=== PATIENT | female | born 1980 | race Caucasian/White ===

== ENCOUNTER 2020-09-22 15:40 | Emergency (ER) | payer OTHER ==
[~2020-09-22 15:40] MED LIST: ACET500 PO; ALBU90OI INH; AMOCLA875 PO; AMOX500 PO; ASPI325 PO; AZIT250 PO; BCP; BENZ100A PO; BUPR100 PO; CEPH500 PO; CODACE30 PO; CODGUAEL PO; COLD; COUGH; CRUTCH3 USE; CRUTCH4 USE; CYCL10 PO; DIAZ10 PO; DIAZ5 PO; DIPH50 PO; Doxycycline Mo100 M1 PO; ERYT1OIN LEFTEYE; FAMO20 PO; HYDACE5 PO; HYDGUAL120 PO; HYDPAM25 PO; HYOMAX; LORA1 PO; LORA10ER PO; METPRE4DP PO; MULVITMINE; MUPI2TO TOP; NAPR500 PO; ONDA4ODT MM; OXYACE5T PO; PERM5TC TOP; PRED10 PO; PRED20 PO; PROCODE120 PO; PRODEXEL PO; PROM25 PO; PSEU120ER PO; RANI150; SULTRIDS PO; Vibramycin100 MG PO; Zofran Odt4 MG SL; Zofran4 MG PO; [UNRECOGNIZED DRUG - OTHER]; [UNRECOGNIZED DRUG - OTHER]; [UNRECOGNIZED DRUG - REMARK]
== END 2020-09-22 16:11 | disposition left against medical advice (07) ==
LOC: ER 15:40
DX: Z53.21 Procedure and treatment not carried out due to patient leaving prior to being seen by health care provider (principal)

== ENCOUNTER 2020-11-07 14:57 | Emergency (ER) | payer OTHER ==
[~2020-11-07] VITALS: Ht 182.9 cm; Wt 83.5 kg
[2020-11-07] MEDS ORDERED: Robaxin750 MG PO (15:21)
[2020-11-07] MEDS ORDERED: PSEU120ER PO (15:21)
[2020-11-07] MEDS ORDERED: Norco 5-325 Ta1 EACH PO (18:56)
== END 2020-11-07 18:32 | disposition home or self-care (01) ==
LOC: ER 14:57
DX: S32.029A Unspecified fracture of second lumbar vertebra, initial encounter for closed fracture (principal); S32.039A Unspecified fracture of third lumbar vertebra, initial encounter for closed fracture; F17.210 Nicotine dependence, cigarettes, uncomplicated; Z88.6 Allergy status to analgesic agent; Z91.030 Bee allergy status; Z88.2 Allergy status to sulfonamides; Z91.013 Allergy to seafood; Z79.899 Other long term (current) drug therapy; W10.9XXA Fall (on) (from) unspecified stairs and steps, initial encounter
CPT/HCPCS: 72128; 72131; 81025; 99284-25; A9270

== ENCOUNTER 2020-12-10 | Emergency (ER) | payer OTHER ==
[~2020-12-10] MED LIST changes: +Norco 5-325 Ta1 EACH PO; +Robaxin750 MG PO
== END 2020-12-10 01:31 | disposition left against medical advice (07) ==
LOC: ER
DX: Z53.21 Procedure and treatment not carried out due to patient leaving prior to being seen by health care provider (principal)

== ENCOUNTER 2020-12-11 16:32 | Emergency (ER) | payer OTHER ==
[~2020-12-11] VITALS: Ht 180.3 cm; Wt 85.7 kg
== END 2020-12-11 18:08 | disposition home or self-care (01) ==
LOC: ER 16:32
DX: M54.9 Dorsalgia, unspecified (principal); F17.210 Nicotine dependence, cigarettes, uncomplicated; Z88.6 Allergy status to analgesic agent; Z88.5 Allergy status to narcotic agent; Z88.2 Allergy status to sulfonamides; Z91.09 Other allergy status, other than to drugs and biological substances; Z91.030 Bee allergy status; Z79.899 Other long term (current) drug therapy; Z91.81 History of falling; W18.30XA Fall on same level, unspecified, initial encounter
CPT/HCPCS: 36415; 70450; 72131; 99284-25

== ENCOUNTER → 2021-04-09 | Outpatient (CLI) | payer OTHER ==
[2021-04-10 11:43] LABS: Candida species (DNA Probe) Negative (NEGATIVE); G. vaginalis (DNA Probe) Positive (NEGATIVE); T. vaginalis (DNA Probe) Negative (NEGATIVE)
[2021-04-11 15:09] LABS: HPV 16 Negative (Negative); HPV 18 Negative (Negative); HPV OTHER HR TYPES Negative (Negative)
== END ==
LOC: LAB SHORT 15:49 → LAB 15:49
PROVIDERS: Family Medicine
DX: Z01.419 Encounter for gynecological examination (general) (routine) without abnormal findings (principal); N89.8 Other specified noninflammatory disorders of vagina
CPT/HCPCS: 87480; 87510; 87624; 87660; G0145

== ENCOUNTER → 2021-08-29 | Outpatient (CLI) | payer OTHER | LOC: LAB SHORT 18:44 | PROVIDERS: Nurse Practitioner Family | DX: Z79.899 Other long term (current) drug therapy (principal); Z88.2 Allergy status to sulfonamides; Z91.013 Allergy to seafood; Z88.6 Allergy status to analgesic agent; Z91.038 Other insect allergy status; Z91.048 Other nonmedicinal substance allergy status | CPT/HCPCS: G0480 ==

== ENCOUNTER → 2022-01-07 | Outpatient (CLI) | payer OTHER ==
[2022-01-08 09:25] LABS: Candida species (DNA Probe) Negative (NEGATIVE); G. vaginalis (DNA Probe) Positive (NEGATIVE); T. vaginalis (DNA Probe) Negative (NEGATIVE)
== END | disposition home or self-care (01) ==
LOC: LAB SHORT 09:30
PROVIDERS: Internal Medicine
DX: N94.10 Unspecified dyspareunia (principal)
CPT/HCPCS: 87480; 87510; 87660

== ENCOUNTER 2022-08-17 20:10 | Emergency (ER) | payer OTHER ==
[~2022-08-17] VITALS: Ht 182.9 cm; Wt 93.0 kg
== END 2022-08-17 23:13 | disposition home or self-care (01) ==
LOC: ER 20:10
DX: M25.562 Pain in left knee (principal); G89.29 Other chronic pain; F17.210 Nicotine dependence, cigarettes, uncomplicated; Z88.6 Allergy status to analgesic agent; Z88.5 Allergy status to narcotic agent; Z88.8 Allergy status to other drugs, medicaments and biological substances; Z91.030 Bee allergy status; Z91.013 Allergy to seafood; Z88.2 Allergy status to sulfonamides; Z91.048 Other nonmedicinal substance allergy status
CPT/HCPCS: 73562-LT; J1885

== ENCOUNTER → 2022-08-27 | Outpatient (CLI) | payer OTHER | END | disposition home or self-care (01) | LOC: LAB 10:45 → LAB SHORT 10:45 | PROVIDERS: Nurse Practitioner Family | DX: G89.4 Chronic pain syndrome (principal) | CPT/HCPCS: G0480 ==

== ENCOUNTER → 2022-09-15 | Outpatient (CLI) | payer OTHER ==
[~2022-09-15] MED LIST changes: +FAMO20; +HYDHCL25 PO; +ZYRTEC10 M2 PO
== END | disposition home or self-care (01) ==
LOC: LAB 15:00 → LAB SHORT 15:00
PROVIDERS: Nurse Practitioner Family
DX: G89.4 Chronic pain syndrome (principal)
CPT/HCPCS: G0480

== ENCOUNTER 2022-09-18 06:06 | Day surgery (SDC) | payer OTHER ==
[~2022-09-18] VITALS: Ht 180.3 cm; Wt 94.5 kg
[~2022-09-18 06:06] MED LIST changes: -FAMO20; -HYDHCL25 PO; -ZYRTEC10 M2 PO
[2022-09-18] MEDS ORDERED: HYDHCL25 PO (06:32)
[2022-09-18] MEDS ORDERED: CYCL10 PO (06:33)
[2022-09-18] MEDS ORDERED: ZYRTEC10 M2 PO (06:34)
[2022-09-18] MEDS ORDERED: FAMO20 (06:34)
--- NOTE | 2022-09-18 07:58 | NUR ---
09/18/22 0758 Kulwant Parra 1 MG EPI ADDED TO THE FIRST BAG OF FLUIDS FOR IRRIGATION AT OPSITE PER ORDER. ROPIVACAINE 0.5% 30 MLS MIXED W/ EPI 0.15 ML (1MG/ML) PER ORDER TO MAKE ROPIVACAINE 0.5% 1:200,000 FOR INJECTION AT OPSITE. MULTI DOSE VIAL. [facility]
--- NOTE | 2022-09-18 09:42 | NUR ---
09/18/22 0942 Donita Evangelista TOTAL OF 100MCG FENTAYL GIVEN TO CONTTOL PAIN. UP IN CHAIR NOW . POLAR PACK PUT ON AND IN PLACE. [facility] HAS RESOLVED WILL NOT GIVE METROCLOPRAMAIDE AT THIS TIME. PT IS FEELING BETTER WHILE IN CHAIR.
== END 2022-09-18 10:14 | disposition home or self-care (01) ==
LOC: ORSCSDS 06:06
PROVIDERS: Orthopaedic Surgery
PROC: 0SQD4ZZ Repair Left Knee Joint, Percutaneous Endoscopic Approach (ICD-10-PCS; principal; 2022-09-18 07:30)
DX: S83.252A Bucket-handle tear of lateral meniscus, current injury, left knee, initial encounter (principal); S83.242A Other tear of medial meniscus, current injury, left knee, initial encounter; E78.5 Hyperlipidemia, unspecified; Z79.899 Other long term (current) drug therapy; F17.210 Nicotine dependence, cigarettes, uncomplicated
CPT/HCPCS: A9270; C1713; J0171; J0690; J1100; J1885; J2250; J2405; J2704; J2765; J2795; J3010; J7120

== ENCOUNTER → 2022-11-25 | Outpatient (CLI) | payer OTHER ==
[~2022-11-25] MED LIST changes: +FAMO20; +HYDHCL25 PO; +ZYRTEC10 M2 PO
== END | disposition home or self-care (01) ==
LOC: LAB SHORT 14:54 → LAB 14:54
DX: R30.0 Dysuria (principal)
CPT/HCPCS: 87077; 87086; 87186

== ENCOUNTER → 2023-06-04 | Outpatient (CLI) | payer OTHER | END | disposition home or self-care (01) | LOC: LAB SHORT 18:23 → LAB 18:23 | PROVIDERS: Nurse Practitioner Family | DX: Z51.81 Encounter for therapeutic drug level monitoring (principal); Z79.891 Long term (current) use of opiate analgesic | CPT/HCPCS: G0480 ==

== ENCOUNTER → 2023-08-22 | Outpatient (CLI) | payer OTHER | LOC: LAB SHORT 13:45 → LAB 13:45 | DX: N39.0 Urinary tract infection, site not specified (principal) | CPT/HCPCS: 87086 ==

== ENCOUNTER → 2023-10-14 | Outpatient (CLI) | payer OTHER ==
[2023-10-14 15:26] LABS: Candida species (DNA Probe) Negative (NEGATIVE); G. vaginalis (DNA Probe) Positive (NEGATIVE); T. vaginalis (DNA Probe) Negative (NEGATIVE)
[2023-10-15 17:52] LABS: ETHYL GLUCURONIDE SCRN RFX,URN PresumptivePOS ng/mL (Cutoff 500)
[2023-10-17 02:20] LABS: ETHYL GLUCURONIDE, URN, QUANT >10000 ng/mL; ETHYL SULFATE, URN, QUANT >10000 ng/mL
== END | disposition home or self-care (01) ==
LOC: LAB 10:00 → LAB SHORT 10:00
PROVIDERS: Nurse Practitioner Family
DX: N30.01 Acute cystitis with hematuria (principal); N89.8 Other specified noninflammatory disorders of vagina; F10.10 Alcohol abuse, uncomplicated
CPT/HCPCS: 87077; 87086; 87186; 87480; 87510; 87660; G0480

== ENCOUNTER 2024-03-23 22:25 | Emergency (ER) | payer OTHER ==
[~2024-03-23] VITALS: Ht 180.3 cm; Wt 93.0 kg
[~2024-03-23 22:25] MED LIST changes: +OMEP20ER PO
[2024-03-23 22:48] VITALS: BP 134/100
[2024-03-23] MEDS ORDERED: RX Prepack 6 Tabs Oxycodone 5mg UD ONE (23:30)
== END 2024-03-23 23:50 | disposition home or self-care (01) ==
LOC: ER 22:25
DX: S30.0XXA Contusion of lower back and pelvis, initial encounter (principal); X50.1XXA Overexertion from prolonged static or awkward postures, initial encounter; Z88.8 Allergy status to other drugs, medicaments and biological substances; Z91.013 Allergy to seafood; Z91.030 Bee allergy status; Z79.899 Other long term (current) drug therapy; F17.210 Nicotine dependence, cigarettes, uncomplicated
CPT/HCPCS: 99283; A9270